=== PATIENT | male | born 1965 ===

== ENCOUNTER 2024-11-05 10:02 | Day surgery (SDC) | payer OTHER ==
[2024-11-05 10:32] LABS: MONOCYTE # 0.19 x10^3/uL (0.30-0.82); MONOCYTE % 1.6 % (5.3-12.2); RDW 14.3 % (12.2-16.1)
[2024-11-05 10:33] LABS: ABSOLUTE IMMATURE GRANULOCYTES 0.23 x10^3/uL (0.0-0.031); BASOPHILS # 0.04 x10^3/uL (0.01-0.08); HEMATOCRIT 38.9 % (40.1-51.0); HEMOGLOBIN 12.7 g/dL (13.7-17.5); MCHC 32.6 g/dl (32.3-36.5); MEAN CELL VOLUME 83.5 fl (79.0-92.2); MEAN PLT VOLUME 11.5 fl (9.4-12.4); PLATELET COUNT 109 x10^3/uL (163-337)
[2024-11-05 11:06] LABS: POTASSIUM 4.6 mmol/L (3.5-5.1)
[2024-11-05 11:09] LABS: ALBUMIN 3.6 g/dl (3.4-5.0); BLOOD UREA NITROGEN 18.2 mg/dL (7-18); CALCIUM 9.7 mg/dL (8.5-10.1)
[2024-11-05 11:12] LABS: BILIRUBIN,DIRECT 0.1 mg/dL (0.0-0.2); CREATININE 1.1 mg/dL (0.55-1.3)
[2024-11-05 11:14] LABS: BILIRUBIN,TOTAL 0.3 mg/dL (0.2-1); TOT PROT 6.8 g/dl (6.4-8.2)
[2024-11-05] MEDS: SODIUM CHLORIDE 250 ML IV ONE (11:15)
[2024-11-05] MEDS: FOSAPREPITANT DIMEGLUMINE 150 MG in SODIUM CHLORIDE 145 ML IVPB ONE (11:40)
[2024-11-05] MEDS: PALONOSETRON HCL 0.25 MG/5 ML VIAL IVPUSH ONE (11:41)
[2024-11-05] MEDS: DEXAMETHASONE SODIUM PHOSPHATE 10 MG in SODIUM CHLORIDE 50 ML IVPB ONE (12:23)
[2024-11-05] MEDS: SODIUM CHLORIDE IV ONE (12:45)
[2024-11-05] MEDS: DOCETAXEL IV ONE (12:45)
[2024-11-05] MEDS: LEUCOVORIN IVPB ONE (14:04)
[2024-11-05] MEDS: DEXTROSE 5% IVPB ONE (14:04)
[2024-11-05] MEDS: WATER IVPB ONE (14:04)
[2024-11-05 16:05] VITALS: RESP 20; TEMP 97.5
[2024-11-05 16:35] VITALS: BP 122/68; PULSE 66
== END 2024-11-05 16:40 | disposition home or self-care (01) ==
LOC: JONCCHEMO 10:02 → J7W 13:40 → JONCCHEMO 16:40
PROVIDERS: ATTEND Internal Medicine Hematology & Oncology
DX: C16.9 Malignant neoplasm of stomach, unspecified (principal)
CPT/HCPCS: 36415; 80048; 80076; 85025; 96367; 96375; 96413; 96415; G0498; J1453; J9263

== ENCOUNTER 2024-11-07 16:35 | Day surgery (SDC) | payer OTHER ==
[2024-11-07] MEDS: PEGFILGRASTIM-CBQV (UDENYCA) 6 MG/0.6 ML SYRINGE SQ ONE (16:31)
[2024-11-07 17:52] VITALS: BP 106/66; PULSE 58; RESP 20; TEMP 97.7
== END 2024-11-07 16:45 | disposition home or self-care (01) ==
LOC: JONCCHEMO 16:35
PROVIDERS: ATTEND Internal Medicine Hematology & Oncology
PROC: 3E013GC Introduction of Other Therapeutic Substance into Subcutaneous Tissue, Percutaneous Approach (ICD-10-PCS; principal; 2024-11-07)
DX: C16.9 Malignant neoplasm of stomach, unspecified (principal); Z76.89 Persons encountering health services in other specified circumstances
CPT/HCPCS: 96372; Q5111

== ENCOUNTER 2024-11-19 09:39 | Day surgery (SDC) | payer OTHER ==
[2024-11-19 10:08] LABS: ABSOLUTE IMMATURE GRANULOCYTES 0.92 x10^3/uL (0.0-0.031); BASOPHILS # 0.07 x10^3/uL (0.01-0.08); HEMATOCRIT 37.2 % (40.1-51.0); HEMOGLOBIN 11.9 g/dL (13.7-17.5); MEAN CELL VOLUME 83.8 fl (79.0-92.2); MEAN PLT VOLUME 12.3 fl (9.4-12.4); MONOCYTE # 0.29 x10^3/uL (0.30-0.82); MONOCYTE % 1.5 % (5.3-12.2); PLATELET COUNT 91 x10^3/uL (163-337); RDW 15.4 % (12.2-16.1)
[2024-11-19 10:22] LABS: CHLORIDE 108 mmol/L (98-107); POTASSIUM 4.3 mmol/L (3.5-5.1); SODIUM 142 mmol/L (136-145)
[2024-11-19 10:25] LABS: CALCIUM 9.4 mg/dL (8.5-10.1)
[2024-11-19 10:26] LABS: ALBUMIN 3.5 g/dl (3.4-5.0); ANION GAP 10 mmol/L (4-13); BLOOD UREA NITROGEN 14.8 mg/dL (7-18); CO2 24 mmol/L (21-32); GLUCOSE,RANDOM 145 mg/dL (74-106)
[2024-11-19 10:29] LABS: BILIRUBIN,DIRECT 0.1 mg/dL (0.0-0.2); CREATININE 1.1 mg/dL (0.55-1.3); SGOT/AST 40 U/L (15-37); SGPT/ALT 38 U/L (13-61)
[2024-11-19 10:30] LABS: BILIRUBIN,TOTAL 0.3 mg/dL (0.2-1)
[2024-11-19 10:31] LABS: TOT PROT 6.4 g/dl (6.4-8.2)
[2024-11-19 10:32] LABS: ALK PHOS 144 U/L (45-117)
[2024-11-19] MEDS: SODIUM CHLORIDE 250 ML IV ONE (11:01)
[2024-11-19] MEDS: FOSAPREPITANT DIMEGLUMINE 150 MG in SODIUM CHLORIDE 145 ML IVPB ONE (11:27)
[2024-11-19] MEDS: PALONOSETRON HCL 0.25 MG/5 ML VIAL IVPUSH ONE (12:07)
[2024-11-19] MEDS: DEXAMETHASONE SODIUM PHOSPHATE 10 MG in SODIUM CHLORIDE 50 ML IVPB ONE (12:07)
[2024-11-19] MEDS: SODIUM CHLORIDE IV ONE (12:26)
[2024-11-19] MEDS: DOCETAXEL IV ONE (12:26)
[2024-11-19] MEDS: WATER IVPB ONE (13:34)
[2024-11-19] MEDS: LEUCOVORIN IVPB ONE (13:34)
[2024-11-19] MEDS: DEXTROSE 5% IVPB ONE (13:34)
[2024-11-19 17:54] VITALS: TEMP 97.5
[2024-11-19 18:11] VITALS: BP 128/73; PULSE 58; RESP 18
[2024-11-19] MEDS ORDERED: PORTA CATH FLUSH 10 ML IVPUSH PRN (18:11)
== END 2024-11-19 16:15 | disposition home or self-care (01) ==
LOC: JONCCHEMO 09:39
PROVIDERS: ATTEND Internal Medicine Hematology & Oncology
DX: Z51.11 Encounter for antineoplastic chemotherapy (principal); C16.9 Malignant neoplasm of stomach, unspecified
CPT/HCPCS: 36415; 80048; 80076; 85025; 96368; 96375; 96413; 96415; 96417; G0498; J1453; J9263

== ENCOUNTER 2024-11-21 15:48 | Day surgery (SDC) | payer OTHER ==
[2024-11-21] MEDS: PEGFILGRASTIM-CBQV (UDENYCA) 6 MG/0.6 ML SYRINGE SQ ONE (15:52)
[2024-11-21 17:04] VITALS: BP 117/73; PULSE 57; RESP 20; TEMP 97.5
== END 2024-11-21 16:00 | disposition home or self-care (01) ==
LOC: JONCCHEMO 15:48 → J7W 15:49 → JONCCHEMO 16:00
PROVIDERS: ATTEND Internal Medicine Hematology & Oncology
PROC: 3E013GC Introduction of Other Therapeutic Substance into Subcutaneous Tissue, Percutaneous Approach (ICD-10-PCS; principal; 2024-11-21)
DX: C16.9 Malignant neoplasm of stomach, unspecified (principal); Z76.89 Persons encountering health services in other specified circumstances
CPT/HCPCS: 96372; Q5111

== ENCOUNTER 2024-12-03 09:36 | Day surgery (SDC) | payer OTHER ==
[2024-12-03 10:17] LABS: ABSOLUTE IMMATURE GRANULOCYTES 0.47 x10^3/uL (0.0-0.031); BASOPHILS # 0.02 x10^3/uL (0.01-0.08); EOSINOPHIL % 0.0 % (0.8-7.0); EOSINOPHILS # 0.00 x10^3/uL (0.04-0.54); MCHC 31.7 g/dl (32.3-36.5); MEAN CELL VOLUME 84.2 fl (79.0-92.2); MEAN PLT VOLUME 12.4 fl (9.4-12.4); MONOCYTE # 0.19 x10^3/uL (0.30-0.82); MONOCYTE % 1.4 % (5.3-12.2); RDW 16.3 % (12.2-16.1)
[2024-12-03] MEDS: SODIUM CHLORIDE 250 ML IV ONE (10:40)
[2024-12-03 11:01] LABS: CO2 24 mmol/L (21-32); GLUCOSE,RANDOM 149 mg/dL (74-106)
[2024-12-03 11:04] LABS: CREATININE 1.1 mg/dL (0.55-1.3); SGOT/AST 54 U/L (15-37); SGPT/ALT 42 U/L (13-61)
[2024-12-03 11:06] LABS: TOT PROT 6.6 g/dl (6.4-8.2)
[2024-12-03 11:07] LABS: ALK PHOS 122 U/L (45-117)
[2024-12-03] MEDS: FOSAPREPITANT DIMEGLUMINE 150 MG in SODIUM CHLORIDE 145 ML IVPB ONE (11:35)
[2024-12-03] MEDS: PALONOSETRON HCL 0.25 MG/5 ML VIAL IVPUSH ONE (12:16)
[2024-12-03] MEDS: DEXAMETHASONE SODIUM PHOSPHATE 10 MG in SODIUM CHLORIDE 50 ML IVPB ONE (12:23)
[2024-12-03] MEDS: DOCETAXEL IV ONE (12:44)
[2024-12-03] MEDS: SODIUM CHLORIDE IV ONE (12:44)
[2024-12-03] MEDS: DEXTROSE 5% IVPB ONE (13:50)
[2024-12-03] MEDS: LEUCOVORIN IVPB ONE (13:50)
[2024-12-03] MEDS: WATER IVPB ONE (13:50)
[2024-12-03] MEDS: SODIUM CHLORIDE CP ONE (15:59)
[2024-12-03] MEDS: FLUOROURACIL CP ONE (15:59)
[2024-12-03 17:41] VITALS: BP 115/67; PULSE 70; RESP 20; TEMP 97.5
== END 2024-12-03 16:20 | disposition home or self-care (01) ==
LOC: JONCCHEMO 09:36
PROVIDERS: ATTEND Internal Medicine Hematology & Oncology
DX: Z51.11 Encounter for antineoplastic chemotherapy (principal); C16.9 Malignant neoplasm of stomach, unspecified
CPT/HCPCS: 36415; 80048; 80076; 85025; 96367; 96368; 96375; 96413; 96415; 96417; G0498; J1453; J9263

== ENCOUNTER 2024-12-04 15:56 | Day surgery (SDC) | payer OTHER ==
[2024-12-04] MEDS: PORTA CATH FLUSH 10 ML IVPUSH PRN (16:10)
[2024-12-04 17:00] VITALS: BP 113/68; PULSE 64; RESP 20; TEMP 97.8
== END 2024-12-04 16:10 | disposition home or self-care (01) ==
LOC: JONCCHEMO 15:56 → J7W 15:56 → JONCCHEMO 16:10
PROVIDERS: ATTEND Internal Medicine Hematology & Oncology
DX: Z53.8 Procedure and treatment not carried out for other reasons (principal)

== ENCOUNTER 2024-12-05 16:40 | Day surgery (SDC) | payer OTHER ==
[2024-12-05] MEDS: PEGFILGRASTIM-CBQV (UDENYCA) 6 MG/0.6 ML SYRINGE SQ ONE (16:42)
[2024-12-05 17:05] VITALS: BP 127/72; PULSE 60; RESP 18; TEMP 98.2
== END 2024-12-05 17:11 | disposition home or self-care (01) ==
LOC: JONCCHEMO 16:40
PROVIDERS: ATTEND Internal Medicine Hematology & Oncology
PROC: 3E013GC Introduction of Other Therapeutic Substance into Subcutaneous Tissue, Percutaneous Approach (ICD-10-PCS; principal; 2024-12-05)
DX: C16.9 Malignant neoplasm of stomach, unspecified (principal); Z76.89 Persons encountering health services in other specified circumstances
CPT/HCPCS: 96372; Q5111

== ENCOUNTER 2024-12-17 09:24 | Day surgery (SDC) | payer OTHER ==
[2024-12-17 09:56] LABS: MCHC 31.9 g/dl (32.3-36.5); MEAN CELL VOLUME 84.4 fl (79.0-92.2); MEAN PLT VOLUME 10.7 fl (9.4-12.4); RDW 17.0 % (12.2-16.1)
[2024-12-17 10:40] LABS: CO2 26 mmol/L (21-32); GLUCOSE,RANDOM 144 mg/dL (74-106)
[2024-12-17 10:43] LABS: CREATININE 1.0 mg/dL (0.55-1.3); SGOT/AST 39 U/L (15-37)
[2024-12-17 10:44] LABS: TOT PROT 6.5 g/dl (6.4-8.2)
[2024-12-17 10:45] LABS: ALK PHOS 133 U/L (45-117)
[2024-12-17 10:50] LABS: SGPT/ALT 40 U/L (13-61)
[2024-12-17] MEDS: SODIUM CHLORIDE 250 ML IV ONE (11:30)
[2024-12-17] MEDS: FOSAPREPITANT DIMEGLUMINE 150 MG in SODIUM CHLORIDE 145 ML IVPB ONE (12:01)
[2024-12-17] MEDS: DOCETAXEL IV ONE ×2 (12:11→13:10)
[2024-12-17] MEDS: SODIUM CHLORIDE IV ONE ×2 (12:11→13:10)
[2024-12-17] MEDS: DEXAMETHASONE SODIUM PHOSPHATE 10 MG in SODIUM CHLORIDE 50 ML IVPB ONE (12:42)
[2024-12-17] MEDS: PALONOSETRON HCL 0.25 MG/5 ML VIAL IVPUSH ONE (12:42)
[2024-12-17] MEDS: DEXTROSE 5% IVPB ONE (14:18)
[2024-12-17] MEDS: LEUCOVORIN IVPB ONE (14:18)
[2024-12-17] MEDS: WATER IVPB ONE (14:18)
[2024-12-17] MEDS: FLUOROURACIL CP ONE (16:38)
[2024-12-17] MEDS: SODIUM CHLORIDE CP ONE (16:38)
[2024-12-17 17:58] VITALS: TEMP 97.8
[2024-12-17 18:09] VITALS: BP 94/67; PULSE 63; RESP 20
[2024-12-17] MEDS ORDERED: PORTA CATH FLUSH 10 ML IVPUSH PRN (18:09)
== END 2024-12-17 16:50 | disposition home or self-care (01) ==
LOC: JONCCHEMO 09:24 → J7W 09:29 → JONCCHEMO 16:50
PROVIDERS: ATTEND Internal Medicine Hematology & Oncology
DX: Z51.11 Encounter for antineoplastic chemotherapy (principal); C16.9 Malignant neoplasm of stomach, unspecified
CPT/HCPCS: 36415; 80048; 80076; 85025; 96367; 96368; 96375; 96413; 96415; 96417; G0498; J1453; J9263

== ENCOUNTER 2024-12-19 16:15 | Day surgery (SDC) | payer OTHER ==
[2024-12-19] MEDS: PEGFILGRASTIM-CBQV (UDENYCA) 6 MG/0.6 ML SYRINGE SQ ONE (16:23)
[2024-12-19 17:28] VITALS: BP 110/71; PULSE 60; RESP 20; TEMP 97.7
== END 2024-12-19 16:40 | disposition home or self-care (01) ==
LOC: JONCCHEMO 16:15 → J7W 16:15 → JONCCHEMO 16:40
PROVIDERS: ATTEND Internal Medicine Hematology & Oncology
PROC: 3E023GC Introduction of Other Therapeutic Substance into Muscle, Percutaneous Approach (ICD-10-PCS; principal; 2024-12-19)
DX: C16.9 Malignant neoplasm of stomach, unspecified (principal); Z76.89 Persons encountering health services in other specified circumstances
CPT/HCPCS: 96372; Q5111

== ENCOUNTER 2025-01-07 09:53 | Day surgery (SDC) | payer OTHER ==
[2025-01-07 10:27] LABS: ABSOLUTE IMMATURE GRANULOCYTES 0.09 x10^3/uL (0.0-0.031); BASOPHILS # 0.01 x10^3/uL (0.01-0.08); EOSINOPHIL % 0.0 % (0.8-7.0); EOSINOPHILS # 0.00 x10^3/uL (0.04-0.54); MCHC 31.7 g/dl (32.3-36.5); MEAN CELL VOLUME 86.2 fl (79.0-92.2); MEAN PLT VOLUME 11.0 fl (9.4-12.4); MONOCYTE # 0.59 x10^3/uL (0.30-0.82); MONOCYTE % 4.8 % (5.3-12.2); RDW 19.2 % (12.2-16.1)
[2025-01-07] MEDS: SODIUM CHLORIDE 250 ML IV ONE (11:20)
[2025-01-07 11:24] LABS: GLUCOSE,RANDOM 115.0 mg/dL (74-106); TOT PROT 6.9 g/dl (6.4-8.2)
[2025-01-07 11:25] LABS: CO2 23.0 mmol/L (21-32)
[2025-01-07 11:27] LABS: ALK PHOS 95.0 U/L (40-150)
[2025-01-07 11:29] LABS: SGPT/ALT 29.0 U/L (0-55)
[2025-01-07 11:30] LABS: CREATININE 0.71 mg/dL (0.55-1.3); SGOT/AST 39.0 U/L (5-34)
[2025-01-07] MEDS: FOSAPREPITANT DIMEGLUMINE 150 MG in SODIUM CHLORIDE 145 ML IVPB ONE (11:36)
[2025-01-07] MEDS: PALONOSETRON HCL 0.25 MG/5 ML VIAL IVPUSH ONE (12:10)
[2025-01-07] MEDS: DEXAMETHASONE SODIUM PHOSPHATE 10 MG in SODIUM CHLORIDE 50 ML IVPB ONE (12:17)
[2025-01-07] MEDS: DOCETAXEL IV ONE (12:35)
[2025-01-07] MEDS: SODIUM CHLORIDE IV ONE (12:35)
[2025-01-07 12:42] VITALS: RESP 20; TEMP 97.7
[2025-01-07] MEDS ORDERED: PORTA CATH FLUSH 10 ML IVPUSH PRN (12:43)
[2025-01-07] MEDS: DEXTROSE 5% IVPB ONE (13:44)
[2025-01-07] MEDS: WATER IVPB ONE (13:44)
[2025-01-07] MEDS: LEUCOVORIN IVPB ONE (13:44)
[2025-01-07] MEDS: SODIUM CHLORIDE CP ONE (15:56)
[2025-01-07] MEDS: FLUOROURACIL CP ONE (15:56)
[2025-01-07 17:09] VITALS: BP 123/70; PULSE 65
== END 2025-01-07 16:15 | disposition home or self-care (01) ==
LOC: JONCCHEMO 09:53 → J7W 09:56 → JONCCHEMO 16:15
PROVIDERS: ATTEND Internal Medicine Hematology & Oncology
DX: Z51.11 Encounter for antineoplastic chemotherapy (principal); C16.9 Malignant neoplasm of stomach, unspecified
CPT/HCPCS: 36415; 80048; 80076; 85025; 96368; 96375; 96413; 96415; 96417; G0498; J1453; J9263

== ENCOUNTER 2025-01-09 15:37 | Day surgery (SDC) | payer OTHER ==
[2025-01-09] MEDS: PEGFILGRASTIM-CBQV (UDENYCA) 6 MG/0.6 ML SYRINGE SQ ONE (15:47)
[2025-01-09 15:52] VITALS: BP 92/59; PULSE 66; RESP 18; TEMP 98
== END 2025-01-09 16:43 | disposition home or self-care (01) ==
LOC: JONCCHEMO 15:37
PROVIDERS: ATTEND Internal Medicine Hematology & Oncology
PROC: 3E013GC Introduction of Other Therapeutic Substance into Subcutaneous Tissue, Percutaneous Approach (ICD-10-PCS; principal; 2025-01-09)
DX: C16.9 Malignant neoplasm of stomach, unspecified (principal); Z76.89 Persons encountering health services in other specified circumstances
CPT/HCPCS: 96372; Q5111

== ENCOUNTER 2025-01-22 16:45 | Day surgery (SDC) | payer OTHER ==
[2025-01-22] MEDS: PORTA CATH FLUSH 10 ML IVPUSH PRN (16:57)
[2025-01-22 18:02] VITALS: BP 113/66; PULSE 67; RESP 20; TEMP 97.7
== END 2025-01-22 17:05 | disposition home or self-care (01) ==
LOC: J7W 16:45 → JONCCHEMO 16:45
PROVIDERS: ATTEND Internal Medicine Hematology & Oncology
DX: Z53.8 Procedure and treatment not carried out for other reasons (principal)